=== PATIENT | female | born 1980 | race African-American/Black ===

== ENCOUNTER 2016-09-27 14:04 | Emergency (ER) | payer MEDICARE ==
[~2016-09-27] VITALS: Ht 157.5 cm; Wt 66.2 kg
[~2016-09-27 14:04] MED LIST: AMOX1TAB10 PO; BACL10TA PO; CETI10TA22 PO; DIME1CAP PO; FLUT9.9S NS; GUAI118S36 PO; LAMO25TA5 PO; METH4TAB7 PO; PNV1TABL25 PO; PRED20TA PO; PROAIR HFA8.5 GM INH; PROM118S2 PO
[2016-09-27 14:15] VITALS: BP 129/74
--- NOTE | 2016-09-27 14:57 | PHYS DOC ---
Past Medical History Past Medical History: Other Additional Past Medical Histor: MS Past Surgical History: Alcohol Use: None Drug Use: None Adult General Chief Complaint Chief Complaint: COUGH HPI HPI Patient is a 36 year old female presents emergency department stating that she' s had a cough and nasal congestion since . 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 Patient states that she has not had any fever, chills or any nausea or vomiting. She denies having the influenza vaccination. She states that she has tried Tylenol or ibuprofen Delsym DayQuil and NyQuil she states that some of these medications have helped her sleep although they have not helped with the symptoms. Patient states that she coughs so much she becomes short of air. Review of Systems Review of Systems Constitutional: Denies fever or chills [] Eyes: Denies change in visual acuity, redness, or eye pain [] HENT: nasal congestion denies sore throat [] Respiratory: cough denies shortness of breath [] Cardiovascular: No additional information not addressed in HPI [] GI: Denies abdominal pain, nausea, vomiting, bloody stools or diarrhea [] : Denies dysuria or hematuria [] Musculoskeletal: Denies back pain or joint pain [] Integument: Denies rash or skin lesions [] Neurologic: Denies headache, focal weakness or sensory changes [] Allergies Allergies Allergies Coded Allergies Type Severity Reaction Last Updated Verified No Known Drug Allergies 06/27/16 No Physical Exam Physical Exam Constitutional: Well developed, well nourished, no acute distress, non-toxic appearance. [] HENT: Normocephalic, atraumatic, bilateral external ears normal, oropharynx moist, no oral exudates, nose normal. Bilateral TM normal, throat without erythema no exudate. Eyes: PERRLA, EOMI, conjunctiva normal, no discharge. [] Neck: Normal range of motion, no tenderness, supple, no stridor. [] Cardiovascular:Heart rate regular rhythm, no murmur [] Lungs & Thorax: Bilateral breath sounds clear to auscultation [] Skin: Warm, dry, no erythema, no rash. [] Back: No tenderness Extremities: No tenderness, no cyanosis, no clubbing, ROM intact, no edema. [] Neurologic: Alert and oriented X 3, normal motor function, normal sensory function, no focal deficits noted. [] Psychologic: Affect normal, judgement normal, mood normal. [] Current Patient Data Vital Signs Vital Signs Date Time Temp Pulse Resp B/P Pulse Ox O2 Delivery O2 Flow Rate FiO2 09/27/16 14:15 98.8 107 20 99 Room Air 98.8 Lab Values Laboratory Tests Test 09/27/16 14:59 Influenza Type A Antigen Negative (NEGATIVE) Influenza Type B Antigen Negative (NEGATIVE) EKG EKG [] Radiology/Procedures Radiology/Procedures [] Course & Med Decision Making Course & Med Decision Making Pertinent Labs and Imaging studies reviewed. (See chart for details) Patient's influenza swabs were negative. She will be placed on Zithromax. We'll recommend Mucinex DM [id number] for cough and congestion. Plenty of fluids. Tylenol and ibuprofen for fever chills or generalized body aches and discomfort. Signs and symptoms to return back to emergency department as been provided. Patient agrees with discharge instructions treatment regimens and follow-up recommendations. [] Dragon Disclaimer Dragon Disclaimer This electronic medical record was generated, in whole or in part, using a voice recognition dictation system. Departure Departure Impression: Primary Impression: URI (upper respiratory infection) Disposition: HOME, SELF-CARE Condition: STABLE Referrals: NON,STAFF (PCP) Patient Instructions: Upper Respiratory Infection, Adult, [id number] Additional Instructions: Activity as tolerated Medication as prescribed Mucinex DM over the counter for cough and congestion Drink plenty of fluids Followup with your primary care provider in 3-5 days Return to emergency department as needed for signs and symptoms that become worse. Scripts Azithromycin (Zithromax)250 Mg [id number] Mg PO DAILY ANTI-BIOTIC #6 TAB Ref 0 Take 2 tablets today then 1 tablet daily until gone Prov:BC AGUILLON NP 09/27/16 Albuterol Sulfate (Proair Hfa Inhaler)8.5 Gm [id number] Puff INH PRN Q6HRS PRN SHORTNESS OF BREATH #1 INHALER Prov:BC AGUILLON CMO 09/27/16 BC AGUILLON CMO Sep 27, 2016 14:57
[2016-09-27 15:40] LABS: OBC FLU VALID
[2016-09-27] MEDS ORDERED: PROAIR HFA8.5 GM INH (15:51)
[2016-09-27] MEDS ORDERED: AZIT250T PO (15:51)
== END 2016-09-27 16:02 | disposition home or self-care (01) ==
LOC: ER 14:04
DX: J06.9 Acute upper respiratory infection, unspecified (principal); G35 Multiple sclerosis
CPT/HCPCS: 87804; 99284